=== PATIENT | male | born 1955 | race Caucasian/White ===

== ENCOUNTER 2019-07-02 19:07 | Inpatient (IN) | payer MEDICARE ==
[~2019-07-02] VITALS: Ht 170.2 cm; Wt 51.7 kg
[~2019-07-02 19:07] MED LIST: ANTIVERT25 MG PO
[2019-07-02] MEDS ORDERED: SERTRALINE HCL50 MG PO (19:16)
[2019-07-02] MEDS ORDERED: XANAX1 MG PO (19:16)
[2019-07-02 19:28] LABS: ABSOLUTE EOSINOPHILS 0.4 thou/uL (0.0-0.7); ABSOLUTE LYMPHOCYTES 1.6 thou/uL (0.8-5.3); ABSOLUTE MONOCYTES 0.7 thou/uL (0.0-1.2); ABSOLUTE NEUTROPHILS 5.6 thou/uL (1.6-8.1); BASOPHILS 0.4 %; EOSINOPHILS 4.8 %; HEMATOCRIT 49.5 % (42.0-52.0); HEMOGLOBIN 16.6 gm/dL (14.0-18.0); LYMPHOCYTES 19.1 %; MCH 30.7 pg (26.0-34.0); MCHC 33.5 g/dL (28.0-37.0); MCV 91.8 fL (80.0-100.0); MONOCYTES 8.6 %; MPV 8.2 fl. (7.2-11.1); NUCLEATED RBCS 0 /100WBC; PLATELET COUNT* 423 thou/uL (150-400); POLYS 67.1 %; RBC 5.39 mil/uL (4.50-6.00); RDW-CV 17.6 % (10.5-14.5); WBC 8.4 thou/uL (4.0-11.0)
[2019-07-02 19:37] LABS: ANION GAP 12 mmol/L (7-16); BUN 11 mg/dL (7-18); CALCIUM 8.6 mg/dL (8.5-10.1); CHLORIDE 103 mmol/L (98-107); CO2 26 mmol/L (21-32); CREATININE 0.7 mg/dL (0.6-1.3); GLUCOSE 79 mg/dL (70-99); POTASSIUM 4.6 mmol/L (3.5-5.1); SODIUM 141 mmol/L (136-145)
[2019-07-02 19:48] LABS: ALBUMIN 4.1 g/dL (3.4-5.0); ALKALINE PHOSPHATASE 145 U/L (46-116); LIPASE 631 U/L (73-393); MAGNESIUM 2.2 mg/dL (1.8-2.4); NT-PRO BRAIN NAT PEPTIDE 24 pg/mL (<300); SGOT 64 U/L (15-37); SGPT 64 U/L (30-65); TOTAL BILIRUBIN 0.4 mg/dL (<0.1-1.0); TOTAL PROTEIN 7.6 g/dL (6.4-8.2); TROPONIN-I LEVEL <0.06 ng/mL (<0.06)
[2019-07-02] MEDS ORDERED: PREDNISONE50 MG PO (20:28)
[2019-07-02] MEDS ORDERED: VENTOLIN HFA 1818 GM INH (20:28)
[2019-07-02 22:06] VITALS: BP 100/66
[2019-07-02 23:00] VITALS: BP 120/75
[2019-07-03] VITALS: BP 114/63
[2019-07-03 04:00] VITALS: BP 120/68
--- NOTE | 2019-07-03 04:58 | NUR ---
RECEIVED REPORT FROM ED RN. PT TRANSFERRED TO RM 230. PT A&OX4. VSS. 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 ADMISSION HISTORY & PHYSICAL ASSESSMENT COMPLETED AND CHARTED. PT ON O2 AT 2L NC. PT TRACING SR ON TELE. PT UPSTANDBY TO RESTROOM. PT DENIES ANY PAIN. CIWA CHARTED. PT ABLE TO SLEEP WELL ON BED. CALL LIGHT WITHIN REACH.
[2019-07-03 08:00] VITALS: BP 137/83
[2019-07-03 12:00] VITALS: BP 109/80
[2019-07-03 16:00] VITALS: BP 114/73
--- NOTE | 2019-07-03 18:57 | NUR ---
RECEIVED REPORT FROM VIVEK DIXON. ASSUMED CARE OF PT AROUND 0730. PT A&O X4. VSS. 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 AM ASSESSMENT ADN VITALS COMPLETED CHARTED. MEDS PER EMAR. PT TOLERATING DIET, APPETITE FAIR. PT UP AD STARLA/SBA TO BATHROOM TO VOID, NO ISSUES. PT HAS DENIED PAIN OR DISCOMFORT THIS SHIFT. PT USING 2L PER NC, TITRATED DOWN FROM 3L PER NC. PT STATES "I JUST FEEL BETTER WITH THE OXYGEN ON". GOAL FOR PT IS TO CONTINUE TO WEAN OFF O2. CIWA'S 4 THROUGHOUT SHIFT. PT CURRENTLY RESTING IN BED WATCHING TV. LOW RISK FALL PRECAUTIONS IN PLACE. CALL LIGHT IS WITHIN REACH. HOURLY ROUNDING PERFORMED.
[2019-07-04] VITALS (8 sets, daily range): BP systolic 99–115; BP diastolic 62–67
[2019-07-04 04:40] LABS: HEMATOCRIT 39.1 % (42.0-52.0); MCH 30.2 pg (26.0-34.0); MCHC 32.5 g/dL (28.0-37.0); MPV 8.9 fl. (7.2-11.1); RBC 4.21 mil/uL (4.50-6.00); RDW-CV 18.2 % (10.5-14.5); WBC 15.5 thou/uL (4.0-11.0)
[2019-07-04 04:59] LABS: ALBUMIN 2.8 g/dL (3.4-5.0); CALCIUM 7.7 mg/dL (8.5-10.1); CREATININE 0.8 mg/dL (0.6-1.3); POTASSIUM 3.8 mmol/L (3.5-5.1); TOTAL BILIRUBIN 0.8 mg/dL (<0.1-1.0); TOTAL PROTEIN 5.4 g/dL (6.4-8.2)
[2019-07-04 05:09] LABS: HEMOGLOBIN 12.7 gm/dL (14.0-18.0)
--- NOTE | 2019-07-04 08:05 | NUR ---
PATIENT SLEPT MOST OF THE NIGHT. IV REMAINS SALINE LOCKED. PATIENT REMAINS ON OXYGEN AT 2L PER NASAL CANNULA. WILL CONTINUE TO MONITOR.
--- NOTE | 2019-07-04 12:39 | 2DMMODE ---
[place] [address] 2 D/M-MODE ECHOCARDIOGRAM Name: LIZETT ASHTON Room: [address] IN [facility]#: [id number] Admission: 07/02/19 Attend Phys: Maris Weinberg, Discharge: Date of : 59 Date of Service: 07/04/19 1239 Report #: [id number] THIS REPORT FOR: //name// APPROVED REPORT Study performed: 07/04/2019 11:09:56 EXAM: Comprehensive 2D, Doppler, and color-flow Echocardiogram Patient Location: In-Patient Room #: 229 Status: routine BSA: 1.55 HR: 108 bpm BP: 110/65 mmHg Rhythm: NSR Other Information Study Quality: Good Indications COPD Chest Pain 2D Dimensions IVSd: 7.62 (7-11mm) LVOT Diam: 19.53 (18-24mm) LVDd: 42.52 mm PWd: 7.32 (7-11mm) Ascending Ao: 27.99 (22-36mm) LVDs: 21.03 (25-40mm) Aortic Root: 25.57 mm Volumes Left Atrial Volume (Systole) LA ESV Index: 16.40 mL/m2 Aortic Valve AoV Peak Anjum.: 1.90 m/s AO Peak Gr.: 14.45 mmHg LVOT Max P.16 mmHg AO Mean Gr.: 8.11 mmHg LVOT Mean P.15 mmHg LVOT Max V: 1.34 m/s AO V2 VTI: 31.17 cm LVOT Mean V: 0.80 m/s LUCIO (VTI): 2.25 cm2 LVOT V1 VTI: 23.37 cm Mitral Valve E/A Ratio: 1.50 MV Decel. Time: 167.83 [place] [address] 2 D/M-MODE ECHOCARDIOGRAM Name: LIZETT ASHTON Room: [address] IN .R.#: [id number] Admission: 07/02/19 Attend Phys: Maris Weinberg, Discharge: Date of : 59 Date of Service: 07/04/19 1239 Report #: [id number] MV E Max Anjum.: 1.11 m/s MV PHT: 48.67 ms MVA (PHT): 4.52 cm2 TDI E/Lateral E': 8.54 E/Medial E': 7.40 Medial E' Anjum.: 0.15 m/s Lateral E' Anjum.: 0.13 m/s Pulmonary Valve PV Peak Anjum.: 1.03 m/s PV Peak Gr.: 4.27 mmHg Tricuspid Valve RAP Estimate: 5.00 mmHg TR Peak Gr.: 24.14 mmHg RVSP: 29.00 mmHg PA Pressure: 29.00 mmHg Left Ventricle The left ventricle is normal size. There is normal LV segmental wall motion. There is normal left ventricular wall thickness. Left ventricular systolic function is normal. The left ventricular ejection fraction is within the normal range. LVEF is 65-70%. The left ventricular diastolic function is normal. Right Ventricle The right ventricle is normal size. The right ventricular systolic function is normal. Atria The left atrium size is normal. The right atrium size is normal. Aortic Valve Mild aortic valve sclerosis. No aortic regurgitation is present. There is no aortic valvular stenosis. Mitral Valve The mitral valve is normal in structure. Trace mitral regurgitation. No evidence of mitral valve stenosis. Tricuspid Valve The tricuspid valve is normal in structure. Trace tricuspid regurgitation. No pulmonary hypertension. Pulmonic Valve The pulmonary valve is normal in structure. [place] [address] 2 D/M-MODE ECHOCARDIOGRAM Name: ASHTONLIZETT ERWIN Room: [address]#: [id number] Admission: 07/02/19 Attend Phys: Maris Weinberg, Discharge: Date of : 59 Date of Service: 07/04/19 1239 Report #: [id number] valvular regurgitation. Great Vessels The aortic root is normal in size. IVC is normal in size and collapses >50% with inspiration. Pericardium There is no pericardial effusion. <Conclusion> The left ventricle is normal size. There is normal left ventricular wall thickness. Left ventricular systolic function is normal. The left ventricular ejection fraction is within the normal range. LVEF is 65-70%. The left ventricular diastolic function is normal. The right ventricle is normal size. The left atrium size is normal. Mild aortic valve sclerosis. No aortic regurgitation is present. There is no aortic valvular stenosis. The mitral valve is normal in structure. Trace mitral regurgitation. The tricuspid valve is normal in structure. IVC is normal in size and collapses >50% with inspiration. There is no pericardial effusion. There is normal LV segmental wall motion. <ELECTRONICALLY SIGNED> By: Jose Abdalla MD, FACC 07/04/19 1239 1239 1239 Jose Abdalla MD, FACC /INF
--- NOTE | 2019-07-04 13:29 | NUR ---
Nutrition: Pt admitted with COPD exac. Seen for low BMI. Wt recorded as 114#. REgular diet rodered. Albumin 2.8. RX: , thiamine, solumedrol. Tapeirng steroids with O2 use. ETOH, tobacco use. RD ordered Ensure with lunches for added kcals and wt maintenance. Underweight R/T etiology unknown, likely demands of COPD AEB BMI <18.5, hx COPD. Mild risk.
[2019-07-04 15:13] LABS: HEMATOCRIT 39.2 % (42.0-52.0); MCH 30.4 pg (26.0-34.0); MCHC 33.1 g/dL (28.0-37.0); MPV 8.8 fl. (7.2-11.1); NUCLEATED RBCS 0 /100WBC; PLATELET COUNT* 314 thou/uL (150-400); RBC 4.26 mil/uL (4.50-6.00); RDW-CV 17.8 % (10.5-14.5); WBC 16.3 thou/uL (4.0-11.0)
[2019-07-04 15:49] LABS: ABSOLUTE LYMPHOCYTES 0.5 thou/uL (0.8-5.3); ABSOLUTE MONOCYTES 0.2 thou/uL (0.0-1.2); ABSOLUTE NEUTROPHILS 15.6 thou/uL (1.6-8.1); PLATELET ESTIMATE ADEQUATE
--- NOTE | 2019-07-04 16:16 | NUR ---
MET WITH PT TO DISCUSS HOME SITUATION/DC PLANNING. PT LIVES WITH HIS COUSIN. HE IS INDEPENDENT AND ACTIVE, USES NEBULIZER. HASN'T HAD HH OR BEEN TO SNF. FOLLOWS WITH DR LICONA IN [place]. PT DENIES NEEDS AT DC, PLANS TO RETURN HOME. WILL FOLLOW
[2019-07-05 04:26] VITALS: BP 111/70
--- NOTE | 2019-07-05 05:04 | NUR ---
PT IS ABLE TO COMMUNICATE HIS NEEDS TO STAFF EFFECTIVELY. HE HAS DENIED THE NEED FOR PAIN MEDICATION UP TO THIS TIME. POSSIBLE DISCHARGE LATER TODAY.
[2019-07-05 08:15] VITALS: BP 122/64
--- NOTE | 2019-07-05 09:26 | EKG ---
[place] [address] ELECTROCARDIOGRAM REPORT Name: RUDDY ASHTON Room: [address] ADM IN M.R.#: [id number] Admission: 07/02/19 Attend Phys: Maris Weinberg MD Discharge: Date of : 59 Report #: [id number] THIS REPORT FOR: //name// [facility] ED Test Date: 2019-07-02 Test Time: 19:09:58 Pat Name: RUDDY ASHTON Department: Room: [facility] Gender: M Serger: [place] : 1955 Requested By: Fabio [facility] Order Number: [id number] MD: Ruddy Bill Measurements Intervals North Rate: 101 P: 76 DE: 130 QRS: 123 QRSD: 77 T: 71 QT: 327 QTc: 424 Interpretive Statements Sinus tachycardia RSR' in V1 or V2, right VCD or RVH Compared to ECG 05/02/2016 11:04:28 Right ventricular hypertrophy now present RSR' in V1 or V2 now present Sinus rhythm no longer present Electronically Signed On 07-05-2019 9:26:19 CDT by Ruddy Bill [email or web address] <ELECTRONICALLY SIGNED> By: Ruddy Bill MD, FAC 07/05/19 0926 08 08 Ruddy Bill MD, FAC /EPI
[2019-07-05 12:00] VITALS: BP 118/65
[2019-07-05] MEDS ORDERED: MUCINEX600 MG PO (12:27)
[2019-07-05] MEDS ORDERED: TESSALON PERLE100 MG PO (12:27)
[2019-07-05 13:02] VITALS: BP 111/65
--- NOTE | 2019-07-05 14:08 | NUR ---
ORDERS NOTED FOR DC HOME WITH HH AND OVERNIGHT SAT STUDY. DISCUSSED WITH PT, HAD NO PREFERENCE. SET UP SPECIALIZED HOME CARE WITH THERAPY AND RT TO FOLLOW PT AT HOME. SET UP OVERNIGHT O2 SAT STUDY THRU [facility], THEY WILL CONTACT PT TO ARRANGE FOR STUDY TONIGHT IN PT'S HOME. CALLED AND FAXED ORDERS TO BOTH AGENCIES. PT GIVEN INFO AND NUMBERS PUT IN HIS DC PAPERS
[2019-07-05] MEDS ORDERED: KEFLEX500 M1 PO (15:10)
[2019-07-05] MEDS ORDERED: PREDNISONE 10 M10 MG PO (15:11)
== END 2019-07-05 15:15 | disposition home health service (06) | DRG 871 ==
LOC: M.ERS 19:07 → M.TBA-ER 21:13 → M.2W 21:13
PROVIDERS: Emergency Medicine Emergency Medical Services; Internal Medicine; ADMIT Internal Medicine
DX: A41.9 Sepsis, unspecified organism (principal); J96.01 Acute respiratory failure with hypoxia; J44.1 Chronic obstructive pulmonary disease with (acute) exacerbation; F41.9 Anxiety disorder, unspecified; F17.210 Nicotine dependence, cigarettes, uncomplicated; Z72.89 Other problems related to lifestyle; Z79.899 Other long term (current) drug therapy; Z88.0 Allergy status to penicillin; Z88.2 Allergy status to sulfonamides; Z80.1 Family history of malignant neoplasm of trachea, bronchus and lung; Z81.2 Family history of tobacco abuse and dependence